=== PATIENT | female | born 1970 | race African-American/Black ===

== ENCOUNTER 2017-01-27 17:53 | Emergency (ER) | payer OTHER ==
[2017-01-27 18:18] VITALS: BP 159/98; PULSE 66; TEMP 98.2; BMI 29.9
[2017-01-27] MEDS ORDERED: IBUPROFEN 600 MG TABLET (FP) PO ONE (19:37)
[2017-01-27] MEDS: IBUPROFEN 600 MG TABLET (FP) PO ONE (19:38)
--- NOTE | 2017-01-27 19:48 | PDOC ---
History of Present Illness - General Chief Complaint: Injury Stated Complaint: INJURY/EMPLOYEE Time Seen by Provider: 01/27/17 19:08 History Source: Patient Exam Limitations: No Limitations - History of Present Illness Initial Comments: 01/27/17 19:38 46 yr female with c/o pain to left wrist after the bed frame fell on her left wrist at work. Pt has pain to the wrist. Past History - Past Medical History Allergies/Adverse Reactions: Allergies Allergy/AdvReac Type Severity Reaction Status Date / Time No Known Allergies Allergy Verified 01/27/17 18:15 Home Medications: Ambulatory Orders No Home Medications 0 dose .ROUTE UTDICT 12/05/12 Other medical history: DENIES. - Immunization History Td Vaccination: No TDAP Vaccination: No Immunization Up to Date: No - Psycho/Social/Smoking Cessation Hx Anxiety: No Suicidal Ideation: No Smoking Status: No Smoking History: Never smoked Number of Cigarettes Smoked Daily: 0 Hx Alcohol Use: No Drug/Substance Use Hx: No *Physical Exam - Vital Signs Last Vital Signs Temp Pulse Resp BP Pulse Ox 98.2 F 66 19 159/98 100 01/27/17 18:15 01/27/17 18:15 01/27/17 18:15 01/27/17 18:15 01/27/17 18:15 - Physical Exam General Appearance: Yes: Nourished, Appropriately Dressed HEENT: positive: EOMI, ILZ, Normal ENT Inspection, TMs Normal, Pharynx Normal Neck: positive: Supple Respiratory/Chest: positive: Lungs Clear, Normal Breath Sounds Cardiovascular: positive: Regular Rhythm, Regular Rate Gastrointestinal/Abdominal: positive: Normal Bowel Sounds, Soft Extremity: positive: Normal Capillary Refill, Normal Inspection, Normal Range of Motion, Tender (distal radius tenderness, no deformity ) Integumentary: positive: Normal Color, Dry, Warm Neurologic: positive: Fully Oriented, Alert, Normal Mood/Affect, Normal Response , Motor Strength 5/5 Procedures - Splinting Pre-Made Type: velcro ED Treatment Course - RADIOLOGY Radiology Studies Ordered: Category Date Time Status WRIST W/HAND-LEFT* [RAD] Stat Radiology 01/27/17 19:35 Ordered Medical Decision Making - Medical Decision Making 01/27/17 20:09 cc: left wrist injury at work today will get xray to r/o fracture motrin for pain *DC/Admit/Observation/Transfer Diagnosis at time of Disposition: Contusion of wrist Qualifiers: Encounter type: initial encounter Laterality: left Qualified Code(s): S60.212A - Contusion of left wrist, initial encounter - Discharge Dispostion Disposition: HOME Condition at time of disposition: Good - Referrals Referrals: Althea Knowles MD [Primary Care Provider] - New Ramos MD [Staff Physician] - - Patient Instructions Additional Instructions: keep the wrist in the splint at all times except to bathe and sleep take motrin as needed for pain follow with the orthopedist or for follow up next week - Post Discharge Activity Work/School Note: Back to Work
== END 2017-01-27 20:38 | disposition home or self-care (01) ==
LOC: JERFT 17:53
PROC: 2W3DX1Z Immobilization of Left Lower Arm using Splint (ICD-10-PCS; principal; 2017-01-27)
DX: S60.212A Contusion of left wrist, initial encounter (principal); W22.8XXA Striking against or struck by other objects, initial encounter; Y93.89 Activity, other specified; Y92.238 Other place in hospital as the place of occurrence of the external cause; Y99.0 Civilian activity done for income or pay
CPT/HCPCS: 73110-TC-LT; 73130-TC-LT; 99281-25

== ENCOUNTER 2017-11-10 19:50 | Emergency (ER) | payer OTHER ==
--- NOTE | 2017-11-10 20:10 | PDOC ---
Rapid Medical Evaluation Time Seen by Provider: 11/10/17 20:09 Medical Evaluation: Allergies Allergy/AdvReac Type Severity Reaction Status Date / Time No Known Allergies Allergy Verified 01/27/17 18:15 11/10/17 20:09 I have performed a brief in-person evaluation of this patient. The patient presents with a chief complaint of: MSK pain under shoulder blade after "trying to catch patient" Pertinent physical exam findings: well appearing, BP 190/100 I have ordered the following: urine preg The patient will proceed to the ED for further evaluation. Discharge Disposition - Diagnosis Muscle strain - Referrals - Patient Instructions - Post Discharge Activity
[2017-11-10 20:15] VITALS: PULSE 75; BMI 29.9
[2017-11-10] MEDS ORDERED: KETOROLAC TROMETHAMINE 30 MG/1 ML VIAL IM ONE (21:09)
--- NOTE | 2017-11-10 21:12 | PDOC ---
History of Present Illness - General Chief Complaint: Pain Stated Complaint: INJURY Time Seen by Provider: 11/10/17 20:09 History Source: Patient Exam Limitations: No Limitations - History of Present Illness Initial Comments: 11/10/17 21:09 This a 47-year-old female without significant past medical history was presents to the emergency department with right upper back pain status post striking ribs on door jamb. 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 She reports the pain is 8/10 and describes as a spasm. She denies fevers, chest pain, shortness of breath, dizziness. Past History - Past Medical History Allergies/Adverse Reactions: Allergies Allergy/AdvReac Type Severity Reaction Status Date / Time No Known Allergies Allergy Verified 11/10/17 20:12 Home Medications: Ambulatory Orders No Home Medications 0 dose .ROUTE UTDICT 12/05/12 COPD: No - Immunization History Td Vaccination: No TDAP Vaccination: No Immunization Up to Date: No - Suicide/Smoking/Psychosocial Hx Smoking Status: No Smoking History: Never smoked Have you smoked in the past 12 months: No Number of Cigarettes Smoked Daily: 0 Information on smoking cessation initiated: No Hx Alcohol Use: No Drug/Substance Use Hx: No Substance Use Type: None Review of Systems - Review of Systems Able to Perform ROS?: Yes Is the patient limited Khmer proficient: No Constitutional: No: Symptoms Reported HEENTM: No: Symptoms Reported Respiratory: No: Symptoms reported Cardiac (ROS): No: Symptoms Reported ABD/GI: No: Symptoms Reported : No: Symptoms Reported Musculoskeletal: Yes: See HPI Integumentary: No: Symptoms Reported Neurological: No: Symptoms reported Endocrine: No: Symptoms Reported Hematologic/Lymphatic: No: Symptoms Reported *Physical Exam - Vital Signs Last Vital Signs Temp Pulse Resp BP Pulse Ox 99.0 F 75 18 190/100 99 11/10/17 20:13 11/10/17 20:13 11/10/17 20:13 11/10/17 20:13 11/10/17 20:13 - Physical Exam General Appearance: Yes: Appropriately Dressed. No: Apparent Distress Respiratory/Chest: positive: Lungs Clear, Normal Breath Sounds. negative: Respiratory Distress, Accessory Muscle Use Cardiovascular: positive: Regular Rhythm, Regular Rate. negative: Murmur Musculoskeletal: positive: Normal Inspection, Other (TTP to right parascapular region. Skin intact.) Integumentary: positive: Normal Color, Dry, Warm Medical Decision Making - Medical Decision Making 11/10/17 21:12 A/P: 47-year-old female without medical history with right parascapular pain status post striking back on doorjamb Skin intact to affected area. Tender to palpation in right parascapular area. No crepitus or subcutaneous emphysema palpated. Vital signs notable for blood pressure of 190/100. I will give the patient Toradol 30 im now. Reassess 11/10/17 22:17 Pain 4/10 after Toradol. I will discharge patient home. *DC/Admit/Observation/Transfer Diagnosis at time of Disposition: Muscle contusion - Discharge Dispostion Disposition: HOME Condition at time of disposition: Stable Admit: No - Referrals - Patient Instructions Additional Instructions: Warm moist heat may help alleviate pain. After 24 hours, apply ice to affected area to help relieve pain. Take Motrin as directed by manufacturers instructions to help alleviate pain. See your doctor for reevaluation of your blood pressure. Return to emergency department for worsening pain, shortness of breath or any other concerns. Thank you very much for choosing us to provide your emergent healthcare needs. - Post Discharge Activity
[2017-11-10] MEDS ORDERED: KETOROLAC TROMETHAMINE 30 MG/1 ML VIAL ONE (21:13)
[2017-11-10 21:38] VITALS: TEMP 98.5
[2017-11-10 21:44] VITALS: BP 183/112
== END 2017-11-10 22:24 | disposition home or self-care (01) ==
LOC: JERFT 19:50
PROC: 3E0233Z Introduction of Anti-inflammatory into Muscle, Percutaneous Approach (ICD-10-PCS; principal; 2017-11-10)
DX: S40.011A Contusion of right shoulder, initial encounter (principal); X58.XXXA Exposure to other specified factors, initial encounter; Y93.F2 Activity, caregiving, lifting; Y92.238 Other place in hospital as the place of occurrence of the external cause; Y99.0 Civilian activity done for income or pay
CPT/HCPCS: 84703; 99281-25

== ENCOUNTER 2018-04-13 16:14 | Emergency (ER) | payer OTHER ==
[2018-04-13 16:19] VITALS: PULSE 89; TEMP 99.1; BMI 31.6
--- NOTE | 2018-04-13 16:34 | PDOC ---
Rapid Medical Evaluation Chief Complaint: Blood Pressure Problem Time Seen by Provider: 04/13/18 16:30 Medical Evaluation: Allergies Allergy/AdvReac Type Severity Reaction Status Date / Time No Known Allergies Allergy Verified 04/13/18 16:16 Vital Signs Temp Pulse Resp BP Pulse Ox 99.1 F 89 18 169/113 100 04/13/18 16:16 04/13/18 16:16 04/13/18 16:16 04/13/18 16:16 04/13/18 16:16 I have performed a brief in-person evaluation of this patient. The patient presents with a chief complaint of: headache and high BP. Patient received bad news that a family member today. She states since then she's been crying and has a headache. Checked BP at work and it was 200/100. She does not have a PCP and does not take BP medication. Pertinent physical exam findings: none I have ordered the following: ekg, labs The patient will proceed to the ED for further evaluation. Discharge Disposition - Diagnosis High blood pressure - Referrals - Patient Instructions - Post Discharge Activity
[2018-04-13 17:21] LABS: BASO % 0.7 % (0-2.0); EOS % 1.7 % (0-4.5); HEMATOCRIT 43.3 % (32.4-45.2); HEMOGLOBIN 14.6 GM/dL (10.7-15.3); LYMPH % 36.9 % (8-40); MCH 28.8 pg (25.7-33.7); MCHC 33.7 g/dl (32.0-36.0); MEAN CELL VOLUME 85.5 fl (80-96); MONO % 9.8 % (3.8-10.2); NEUT % 50.9 % (42.8-82.8); PLATELET COUNT 296 K/MM3 (134-434); RBC 5.07 M/mm3 (3.60-5.2); RDW 13.7 % (11.6-15.6); WHITE BLOOD COUNT 5.2 K/mm3 (4.0-10.0)
[2018-04-13 17:32] LABS: INR 1.1 (0.82-1.09); PROTHROMBIN TIME (PATIENT) 12.4 SEC (9.7-13.0)
[2018-04-13 17:52] LABS: ALBUMIN 3.8 g/dl (3.4-5.0); ANION GAP 8 (8-16); BILIRUBIN,TOTAL 0.2 mg/dL (0.2-1.0); BLOOD UREA NITROGEN 10 mg/dL (7-18); CALCIUM 8.9 mg/dL (8.5-10.1); CHLORIDE 107 mmol/L (98-107); CO2 26 mmol/L (21-32); CREATININE 0.8 mg/dL (0.55-1.02); GLUCOSE,RANDOM 89 mg/dL (74-106); POTASSIUM 3.5 mmol/L (3.5-5.1); SGOT/AST 16 U/L (15-37); SGPT/ALT 29 U/L (12-78); SODIUM 141 mmol/L (136-145); TOT PROT 8.2 g/dl (6.4-8.2)
[2018-04-13 17:54] LABS: ALK PHOS 89 U/L (45-117)
[2018-04-13] MEDS ORDERED: LABETALOL HCL 5 MG/1 ML (100MG/20 ML VIAL) IVPUSH ONE (17:59)
[2018-04-13 18:01] LABS: PLATELET ESTIMATE ADEQUATE
[2018-04-13] MEDS ORDERED: ACETAMINOPHEN 1000 MG/100 ML VIAL (NON FORMULARY) IVPB ONE (18:06)
[2018-04-13] MEDS ORDERED: METOCLOPRAMIDE HCL INJECTION 10 MG/2 ML VIAL IVPUSH ONE (18:06)
[2018-04-13] MEDS ORDERED: METOCLOPRAMIDE HCL INJECTION 10 MG/2 ML VIAL ONE (18:13)
[2018-04-13] MEDS ORDERED: ACETAMINOPHEN INJECTION 100 ML IVPB ONE (18:13)
[2018-04-13] MEDS ORDERED: KETOROLAC TROMETHAMINE 15 MG/ML VIAL IVPUSH ONE (18:44)
--- NOTE | 2018-04-13 18:57 | PDOC ---
History of Present Illness - General History Source: Patient Exam Limitations: No Limitations - History of Present Illness Initial Comments: 04/13/18 18:48 48f with pmh of untreated hypertension and tension headaches presents to the ED for 10 frontal headache since noon today. Family member today and she has been crying a lot. Generally avoid taking medication so never treated HTN or tension headaches. Checked her BP this afternoon, was 200 systolic. Feels "funny" Denies photophobia, auras or vision changes. <Matthew Gonzales - Last Filed: 04/13/18 19:07> <Velasquez Chaves - Last Filed: 04/13/18 19:37> - General Chief Complaint: Blood Pressure Problem Stated Complaint: BLOOD PRESSURE PROBLEM Time Seen by Provider: 04/13/18 16:30 Past History - Past Medical History COPD: No DVT: No Other medical history: uterine fibroids - Immunization History Td Vaccination: No TDAP Vaccination: No Immunization Up to Date: No - Suicide/Smoking/Psychosocial Hx Smoking Status: No Smoking History: Never smoked Have you smoked in the past 12 months: No Number of Cigarettes Smoked Daily: 0 Information on smoking cessation initiated: No Hx Alcohol Use: No Drug/Substance Use Hx: No Substance Use Type: None <Matthew Gonzales - Last Filed: 04/13/18 19:07> <Velasquez Chaves - Last Filed: 04/13/18 19:37> - Past Medical History Allergies/Adverse Reactions: Allergies Allergy/AdvReac Type Severity Reaction Status Date / Time No Known Allergies Allergy Verified 04/13/18 16:16 Home Medications: Ambulatory Orders No Home Medications 0 dose .ROUTE UTDICT 12/05/12 Review of Systems - Review of Systems Able to Perform ROS?: Yes Is the patient limited Danish proficient: No Constitutional: No: Symptoms Reported HEENTM: Yes: Tearing. No: Blurred Vision Respiratory: No: Symptoms reported Cardiac (ROS): No: Symptoms Reported ABD/GI: No: Symptoms Reported : No: Symptoms Reported Musculoskeletal: No: Symptoms Reported Neurological: Yes: Headache. No: Numbness, Paresthesia All Other Systems: Reviewed and Negative <Matthew Gonzales - Last Filed: 04/13/18 19:07> *Physical Exam - Vital Signs Last Vital Signs Temp Pulse Resp BP Pulse Ox 99.1 F 89 18 169/113 100 04/13/18 16:16 04/13/18 16:16 04/13/18 16:16 04/13/18 16:16 04/13/18 16:16 - Physical Exam General Appearance: Yes: Nourished, Appropriately Dressed, Moderate Distress HEENT: positive: EOMI, LIZ, Normal ENT Inspection. negative: Photophobia Respiratory/Chest: positive: Lungs Clear, Normal Breath Sounds. negative: Chest Tender, Respiratory Distress Cardiovascular: positive: Regular Rhythm, Regular Rate, S1, S2 Gastrointestinal/Abdominal: positive: Normal Bowel Sounds, Flat, Soft. negative : Tender Musculoskeletal: positive: Normal Inspection. negative: CVA Tenderness Extremity: positive: Normal Capillary Refill, Normal Inspection, Normal Range of Motion Integumentary: positive: Normal Color, Dry, Warm Neurologic: positive: Fully Oriented, Alert, Normal Mood/Affect, Normal Response , Motor Strength 5/5 <Matthew Gonzales - Last Filed: 04/13/18 19:07> - Vital Signs Last Vital Signs Temp Pulse Resp BP Pulse Ox 99.1 F 89 18 170/96 100 04/13/18 16:16 04/13/18 16:16 04/13/18 16:16 04/13/18 19:33 04/13/18 16:16 <Velasquez Chaves - Last Filed: 04/13/18 19:37> ED Treatment Course - LABORATORY CBC & Chemistry Diagram: 04/13/18 17:13 04/13/18 17:13 - ADDITIONAL ORDERS Additional order review: Laboratory Results 04/13/18 04/13/18 17:13 17:13 PT with INR 12.40 INR 1.10 Sodium 141 Potassium 3.5 Chloride 107 Carbon Dioxide 26 Anion Gap 8 BUN 10 Creatinine 0.8 Creat Clearance w eGFR > 60 Random Glucose 89 Calcium 8.9 Total Bilirubin 0.2 AST 16 ALT 29 Alkaline Phosphatase 89 Creatine Kinase 203 H Troponin I < 0.02 Total Protein 8.2 Albumin 3.8 04/13/18 17:13 RBC 5.07 MCV 85.5 MCHC 33.7 RDW 13.7 D MPV 8.0 Neutrophils % 50.9 Lymphocytes % 36.9 Monocytes % 9.8 Eosinophils % 1.7 Basophils % 0.7 - RADIOLOGY Radiology Studies Ordered: Category Date Time Status HEAD CT WITHOUT CONTRAST [CT] Stat CT Scan 04/13/18 18:02 Completed - Medications Given in the ED: ED Medications Discontinued Medications Generic Name Dose Route Start Last Admin Trade Name Freq PRN Reason Stop Dose Admin Acetaminophen 1,000 mg 04/13/18 18:06 04/13/18 18:31 Ofirmev Injection - IVPB 04/13/18 18:07 1,000 mg ONCE ONE Administration Labetalol HCl 10 mg 04/13/18 17:59 04/13/18 18:08 Normodyne Injection - IVPUSH 04/13/18 18:00 Not Given ONCE ONE Metoclopramide HCl 10 mg 04/13/18 18:06 04/13/18 18:31 Reglan Injection - IVPUSH 04/13/18 18:07 10 mg ONCE ONE Administration <Matthew Gonzales - Last Filed: 04/13/18 19:07> - LABORATORY CBC & Chemistry Diagram: 04/13/18 17:13 04/13/18 17:13 - ADDITIONAL ORDERS Additional order review: Laboratory Results 04/13/18 04/13/18 04/13/18 17:13 17:13 17:13 WBC 5.2 RBC 5.07 Hgb 14.6 Hct 43.3 MCV 85.5 MCH 28.8 MCHC 33.7 RDW 13.7 D Plt Count 296 MPV 8.0 Absolute Neuts (auto) 2.6 Neutrophils % 50.9 Lymphocytes % 36.9 Monocytes % 9.8 Eosinophils % 1.7 Basophils % 0.7 Nucleated RBC % 0 Platelet Estimate Adequate Platelet Comment Rare giant plts PT with INR 12.40 INR 1.10 Sodium 141 Potassium 3.5 Chloride 107 Carbon Dioxide 26 Anion Gap 8 BUN 10 Creatinine 0.8 Creat Clearance w eGFR > 60 Random Glucose 89 Calcium 8.9 Total Bilirubin 0.2 AST 16 ALT 29 Alkaline Phosphatase 89 Creatine Kinase 203 H Creatine Kinase Index 0.5 CK-MB (CK-2) 1.02 Troponin I < 0.02 Total Protein 8.2 Albumin 3.8 04/13/18 17:13 RBC 5.07 MCV 85.5 MCHC 33.7 RDW 13.7 D MPV 8.0 Neutrophils % 50.9 Lymphocytes % 36.9 Monocytes % 9.8 Eosinophils % 1.7 Basophils % 0.7 - Medications Given in the ED: ED Medications Discontinued Medications Generic Name Dose Route Start Last Admin Trade Name Freq PRN Reason Stop Dose Admin Acetaminophen 1,000 mg 04/13/18 18:06 04/13/18 18:31 Ofirmev Injection - IVPB 04/13/18 18:07 1,000 mg ONCE ONE Administration Ketorolac Tromethamine 15 mg 04/13/18 18:44 04/13/18 19:05 Toradol Injection - IVPUSH 04/13/18 18:45 15 mg ONCE ONE Administration Labetalol HCl 10 mg 04/13/18 17:59 04/13/18 18:08 Normodyne Injection - IVPUSH 04/13/18 18:00 Not Given ONCE ONE Metoclopramide HCl 10 mg 04/13/18 18:06 04/13/18 18:31 Reglan Injection - IVPUSH 04/13/18 18:07 10 mg ONCE ONE Administration <Velasquez Chaves - Last Filed: 04/13/18 19:37> Medical Decision Making - Medical Decision Making 04/13/18 19:08 CT head: No CT evidence of acute intracranial pathology. The intracranial structures demonstrate no definite interval change in comparison to a prior cranial CT study of 10/10/2009. On the current exam the partially imaged right sphenoid sinus demonstrates interval resolution of opacification since the 2010 CT study consistent with at least partial resolution of sinusitis. All labs WNL. Will treat pain with toradol, tylenol and reglan, EKG Will reassess after pain control. Patient has appointment tomorrow with PCP to get BP controlled. . <Matthew Gonzales - Last Filed: 04/13/18 19:07> *DC/Admit/Observation/Transfer - Discharge Dispostion Decision to Admit order: No <Matthew Gonzales - Last Filed: 04/13/18 19:07> <Velasquez Chaves - Last Filed: 04/13/18 19:37> Diagnosis at time of Disposition: High blood pressure - Referrals Referrals: Althea Knowles MD [Primary Care Provider] - New Valdez MD [Staff Physician] - - Patient Instructions Printed Discharge Instructions: DI for High Blood Pressure Additional Instructions: Follow up with your appointment with Dr. Knowles tomorrow morning. You need to have your blood pressure re-checked by your primary doctor, as it was elevated today. Uncontrolled blood pressure can eventually lead to kidney disease, heart disease, other serious illness, disability, or even . If you experience worsening headache, vomiting, fevers, or any other concerning symptoms, return to the ER immediately. Call the number provided to make an appointment with a neurologist for further evaluation of your headaches. - Post Discharge Activity
[2018-04-13] MEDS ORDERED: KETOROLAC TROMETHAMINE 15 MG/ML VIAL ONE (19:06)
--- NOTE | 2018-04-13 19:26 | PDOC ---
Attending Attestation - Resident Resident Name: JanetMatthew - ED Attending Attestation I have performed the following: I have examined & evaluated the patient, The case was reviewed & discussed with the resident, I agree w/resident's findings & plan, Exceptions are as noted - HPI HPI: 04/13/18 19:29 48 F with no known PMH presents to ED with headache x 1 day. Pt reports history of tension headaches and states that this headache began the same way it always does. She reports tightness behind the head that progresses to global headache. Denies N/V. Denies F/C. Denies neck stiffness. Pt reports in family today and states that she has been crying, which likely set off the headache. Pt denies thunderclap, denies worst headache of life. Notably, pt's BP was elevated in triage. Pt reports that her BP has been running high recently. She has appt to see her PMD tomorrow. Pt denies CP/SOB. Denies leg swelling. - Physicial Exam PE: 04/13/18 19:32 "GENERAL: Awake, alert, and fully oriented, in no acute distress. HEAD: No signs of trauma EYES: PERRLA, EOMI, sclera anicteric, conjunctiva clear ENT: Auricles normal inspection, hearing grossly normal, nares patent, oropharynx clear without exudates. Moist mucosa NECK: Nontender, no stepoffs, Normal ROM, supple, no lymphadenopathy, JVD, or masses LUNGS: Breath sounds equal, clear to auscultation bilaterally. No wheezes, and no crackles HEART: Regular rate and rhythm, normal S1 and S2, no murmurs, rubs or gallops ABDOMEN: Soft, nontender, normoactive bowel sounds. No guarding, no rebound. No masses EXTREMITIES: Normal range of motion, no edema. No clubbing or cyanosis. No cords, erythema, or tenderness NEUROLOGICAL: Cranial nerves II through XII intact. 5/5 strength and sensation in all extremities, Normal speech, normal gait, normal cerebellar function SKIN: Warm, Dry, normal turgor, no rashes or lesions noted. " - Medical Decision Making 04/13/18 19:32 48 F with headache. Typical of her usual tension headaches. No red flags for SAH /meningitis or other acute intracranial process. Nonfocal neuro exam. However, pt with elevated BP, so will obtain head CT to r/o ICH. - Labs - CT head - gopal Pendleton 04/13/18 19:[address] head negative Pt reports resolution of KWOK s/p meds. Pt is well appearing, with normal vitals. Clinically stable for DC at this time. I discussed the physical exam findings, ancillary test results and final diagnoses with the patient. I answered all of the patient's questions. The patient was satisfied with the care received and felt comfortable with the discharge plan and treatment plan. The patient agrees to follow up with the primary care physician within 24-72 hours.
[2018-04-13 19:33] VITALS: BP 170/96
--- NOTE | 2018-04-14 14:22 | EKG ---
Test Reason : Blood Pressure : / mmHG Vent. Rate : 070 BPM Atrial Rate : 070 BPM P-R Int : 152 ms QRS Dur : 092 ms QT Int : 428 ms P-R-T Axes : 023 014 040 degrees QTc Int : 462 ms NORMAL SINUS RHYTHM POSSIBLE LEFT ATRIAL ENLARGEMENT BORDERLINE ECG WHEN COMPARED WITH ECG OF 20-JUN-2007 10:19, T WAVE INVERSION NOW EVIDENT IN ANTERIOR LEADS Confirmed by RADHA ESTRADA, CLARA ([id number]) on 04/14/2018 2:22:04 PM Referred By: Confirmed By:CLARA GARCIA MD
== END 2018-04-13 19:41 | disposition home or self-care (01) ==
LOC: JER 16:14
PROC: 3E033NZ Introduction of Analgesics, Hypnotics, Sedatives into Peripheral Vein, Percutaneous Approach (ICD-10-PCS; principal; 2018-04-13)
PROC: 3E0333Z Introduction of Anti-inflammatory into Peripheral Vein, Percutaneous Approach (ICD-10-PCS; 2018-04-13)
PROC: 3E033GC Introduction of Other Therapeutic Substance into Peripheral Vein, Percutaneous Approach (ICD-10-PCS; 2018-04-13)
PROC: 3E033GC Introduction of Other Therapeutic Substance into Peripheral Vein, Percutaneous Approach (ICD-10-PCS; 2018-04-13)
DX: I10 Essential (primary) hypertension (principal); G44.209 Tension-type headache, unspecified, not intractable; Z63.4 Disappearance and death of family member
CPT/HCPCS: 36415; 70450-TC; 80053; 82550; 82553; 84484; 85025; 85610; 93005; 93010; 99284-25; J0131

== ENCOUNTER 2021-01-29 22:16 | Emergency (ER) | payer OTHER ==
[~2021-01-29 22:16] MED LIST: LIDOCAINE PATCH REMOVAL MC SCH
[2021-01-29 22:31] VITALS: BP 164/96; PULSE 80; TEMP 98.5; BMI 32.4
[2021-01-29] MEDS ORDERED: LIDOCAINE 5% TOPICAL PATCH TP ONE (22:53)
[2021-01-29] MEDS ORDERED: ACETAMINOPHEN 500 MG TABLET (FP) PO ONE (22:53)
[2021-01-29] MEDS ORDERED: LIDOCAINE 5% TOPICAL PATCH ONE (23:04)
[2021-01-29] MEDS ORDERED: ACETAMINOPHEN 325 MG TABLET (FP) ONE (23:04)
[2021-01-29] MEDS ORDERED: KETOROLAC TROMETHAMINE 30 MG/1 ML VIAL IM ONE (23:50)
[2021-01-30] MEDS ORDERED: KETOROLAC TROMETHAMINE 30 MG/1 ML VIAL ONE (00:21)
== END 2021-01-30 00:45 | disposition home or self-care (01) ==
LOC: JER 22:16
PROC: 3E0233Z Introduction of Anti-inflammatory into Muscle, Percutaneous Approach (ICD-10-PCS; principal; 2021-01-29)
DX: M25.511 Pain in right shoulder (principal); S63.610A Unspecified sprain of right index finger, initial encounter
CPT/HCPCS: 73030-TC-RT-FY; 73110-TC-RT-FY; 73130-TC-RT-FY; 99284-25

== ENCOUNTER 2021-03-27 17:10 | Emergency (ER) | payer OTHER ==
[2021-03-27 17:24] VITALS: BP 139/75; PULSE 79; BMI 31.6
== END 2021-03-27 18:46 | disposition home or self-care (01) ==
LOC: JER 17:10 → JERFT 17:10
DX: M71.22 Synovial cyst of popliteal space [Baker], left knee (principal)
CPT/HCPCS: 93971-TC; 99284-25

== ENCOUNTER 2021-10-31 16:36 | Emergency (ER) | payer OTHER ==
[2021-10-31 16:49] VITALS: BP 146/73; PULSE 88; TEMP 98; BMI 35.2
[2021-10-31] MEDS ORDERED: LIDOCAINE 5% TOPICAL PATCH TP ONE (17:49)
[2021-10-31] MEDS ORDERED: KETOROLAC TROMETHAMINE 60 MG/2 ML VIAL IM ONE (17:49)
[2021-10-31] MEDS ORDERED: LIDOCAINE 5% TOPICAL PATCH ONE (17:52)
[2021-10-31] MEDS ORDERED: KETOROLAC TROMETHAMINE 30 MG/1 ML VIAL ONE (17:53)
== END 2021-10-31 18:10 | disposition home or self-care (01) ==
LOC: JERFT 16:36 → JER 16:36 → JERFT 18:10
PROC: 3E0233Z Introduction of Anti-inflammatory into Muscle, Percutaneous Approach (ICD-10-PCS; principal; 2021-10-31)
DX: S43.402A Unspecified sprain of left shoulder joint, initial encounter (principal); W19.XXXA Unspecified fall, initial encounter; Y92.9 Unspecified place or not applicable
CPT/HCPCS: 73030-TC-LT-FY; 99284-25

== ENCOUNTER 2022-02-05 13:37 | Emergency (ER) | payer OTHER ==
[2022-02-05 14:05] VITALS: BP 153/78; PULSE 84; TEMP 98.6; BMI 29.9
[2022-02-05] MEDS ORDERED: TETRACAINE 0.5% HCL 0.6ML DROPPER.BOTTLE OU ONE (14:28)
[2022-02-05] MEDS ORDERED: FLUORESCEIN NA 1 EA STRIP OU ONE (14:28)
== END 2022-02-05 15:23 | disposition home or self-care (01) ==
LOC: JERFT 13:37
DX: H11.31 Conjunctival hemorrhage, right eye (principal)
CPT/HCPCS: 87633; 99283-25

== ENCOUNTER 2022-02-19 13:34 | Emergency (ER) | payer OTHER ==
[2022-02-19 13:50] VITALS: BP 151/88; PULSE 89; TEMP 98.5; BMI 31.6
[2022-02-19] MEDS ORDERED: LIDOCAINE 5% TOPICAL PATCH TP ONE (15:09)
[2022-02-19] MEDS ORDERED: KETOROLAC TROMETHAMINE 30 MG/1 ML VIAL IM ONE (15:09)
[2022-02-19] MEDS ORDERED: KETOROLAC TROMETHAMINE 30 MG/1 ML VIAL ONE (15:12)
[2022-02-19] MEDS ORDERED: LIDOCAINE 5% TOPICAL PATCH ONE (15:12)
[2022-02-19] MEDS ORDERED: LIDOCAINE PATCH REMOVAL MC SCH (22:00)
== END 2022-02-19 15:40 | disposition home or self-care (01) ==
LOC: JERFT 13:34
PROC: 3E0233Z Introduction of Anti-inflammatory into Muscle, Percutaneous Approach (ICD-10-PCS; principal; 2022-02-19)
DX: M54.6 Pain in thoracic spine (principal); R07.9 Chest pain, unspecified; V49.40XA Driver injured in collision with unspecified motor vehicles in traffic accident, initial encounter
CPT/HCPCS: 71046-TC-FY; 99284-25

== ENCOUNTER 2023-04-05 20:32 | Emergency (ER) | payer OTHER ==
[2023-04-05 20:41] VITALS: BP 178/94; PULSE 86; RESP 18; TEMP 98.5; BMI 31.6
[2023-04-05] MEDS ORDERED: DEXAMETHASONE SOD PHOSPHATE 10 MG/1 ML VIAL IM ONE (21:26)
[2023-04-05] MEDS ORDERED: KETOROLAC TROMETHAMINE 30 MG/1 ML VIAL IM ONE (21:26)
[2023-04-05] MEDS ORDERED: CYCLOBENZAPRINE HCL 5 MG TABLET PO STA (21:26)
[2023-04-05] MEDS ORDERED: ACETAMINOPHEN 325 MG TABLET (FP) PO ONE (21:26)
[2023-04-05] MEDS ORDERED: DEXAMETHASONE SOD PHOSPHATE 10 MG/1 ML VIAL ONE (21:31)
[2023-04-05] MEDS ORDERED: KETOROLAC TROMETHAMINE 30 MG/1 ML VIAL ONE (21:31)
[2023-04-05] MEDS ORDERED: CYCLOBENZAPRINE HCL 10 MG TABLET (FP) ONE ×2 (21:31→21:36)
[2023-04-05] MEDS ORDERED: ACETAMINOPHEN 325 MG TABLET (FP) ONE (21:31)
== END 2023-04-05 22:09 | disposition home or self-care (01) ==
LOC: JERFT 20:32
PROC: 3E023GC Introduction of Other Therapeutic Substance into Muscle, Percutaneous Approach (ICD-10-PCS; principal; 2023-04-05)
PROC: 3E0233Z Introduction of Anti-inflammatory into Muscle, Percutaneous Approach (ICD-10-PCS; 2023-04-05)
DX: S29.001A Unspecified injury of muscle and tendon of front wall of thorax, initial encounter (principal); M79.10 Myalgia, unspecified site; X58.XXXA Exposure to other specified factors, initial encounter; Y93.9 Activity, unspecified; Y92.9 Unspecified place or not applicable
CPT/HCPCS: 99284-25; J1100

== ENCOUNTER 2023-07-29 16:49 | Emergency (ER) | payer OTHER ==
[2023-07-29 16:54] VITALS: TEMP 98; BMI 33.4
[2023-07-29 17:22] LABS: EPI CELLS 14 /uL (0-25.1); HYALINE CASTS 1 /uL (0-3.1); URINE APPEARANCE CLEAR; URINE BACTERIA 541 /uL (0-1359); URINE BILIRUBIN NEGATIVE (NEGATIVE); URINE COLOR YELLOW; URINE GLUCOSE (UA) NEGATIVE (NEGATIVE); URINE KETONE NEGATIVE (NEGATIVE); URINE LEUK ESTERASE NEGATIVE (NEGATIVE); URINE NITRITE NEGATIVE (NEGATIVE); URINE PROTEIN NEGATIVE (NEGATIVE); URINE RBC 34 /uL (0-23.9); URINE UROBILINOGEN 0.2 mg/dL (0.2-1.0); URINE WBC 27 /uL (0-25.8)
[2023-07-29] MEDS ORDERED: ACETAMINOPHEN 1000 MG/100 ML BAG IVPB ONE (17:25)
[2023-07-29] MEDS ORDERED: ACETAMINOPHEN INJECTION 100 ML IVPB ONE (17:29)
[2023-07-29] MEDS ORDERED: LACTATED RINGERS SOLUTION 1000 ML INFUS.BAG IV ONE (17:34)
[2023-07-29] MEDS ORDERED: ONDANSETRON 4 MG/2 ML VIAL IVPUSH ONE (17:42)
[2023-07-29] MEDS ORDERED: ONDANSETRON 4 MG/2 ML VIAL ONE (17:46)
[2023-07-29 17:58] LABS: BASO % 0.6 % (0-2.0); EOS % 1.5 % (0-4.5); HEMATOCRIT 42.1 % (32.4-45.2); LYMPH % 41.7 % (8-40); MCH 28.5 pg (25.7-33.7); MCHC 33.1 g/dl (32.0-36.0); MEAN CELL VOLUME 86.1 fl (80-96); MEAN PLT VOLUME 7.7 fl (7.5-11.1); MONO % 10.5 % (3.8-10.2); NEUT % 45.7 % (42.8-82.8); PLATELET COUNT 328 10^3/uL (134-434); RDW 14.8 % (11.6-15.6); WHITE BLOOD COUNT 4.5 K/mm3 (4.0-10.0)
[2023-07-29] MEDS ORDERED: CEFTRIAXONE 1 GM in DEXTROSE 5%-WATER - 100 ML IVPB ONE (18:11)
[2023-07-29 18:17] LABS: POTASSIUM 3.3 mmol/L (3.5-5.1)
[2023-07-29 18:19] LABS: ALBUMIN 3.7 g/dl (3.4-5.0)
[2023-07-29 18:20] LABS: BLOOD UREA NITROGEN 9.3 mg/dL (7-18)
[2023-07-29 18:23] VITALS: BP 140/75; PULSE 71; RESP 16
[2023-07-29 18:23] LABS: CREATININE 0.7 mg/dL (0.55-1.3)
[2023-07-29 18:25] LABS: BILIRUBIN,TOTAL 0.2 mg/dL (0.2-1)
[2023-07-29] MEDS ORDERED: CEFTRIAXONE 1 GM/50 ML BAG ONE ×2 (19:05→19:07)
[2023-07-29] MEDS ORDERED: POTASSIUM CHLORIDE ORAL LIQUID 20 MEQ/15 ML PO ONE (19:16)
[2023-07-29] MEDS ORDERED: POTASSIUM CHLORIDE ORAL LIQUID 20 MEQ/15 ML ONE (19:47)
== END 2023-07-29 20:54 | disposition home or self-care (01) ==
LOC: JER 16:49
PROC: 3E03329 Introduction of Other Anti-infective into Peripheral Vein, Percutaneous Approach (ICD-10-PCS; principal; 2023-07-29)
PROC: 3E033NZ Introduction of Analgesics, Hypnotics, Sedatives into Peripheral Vein, Percutaneous Approach (ICD-10-PCS; 2023-07-29)
PROC: 3E033GC Introduction of Other Therapeutic Substance into Peripheral Vein, Percutaneous Approach (ICD-10-PCS; 2023-07-29)
DX: R10.9 Unspecified abdominal pain (principal); R35.0 Frequency of micturition; R31.9 Hematuria, unspecified; R11.0 Nausea; N20.0 Calculus of kidney; N39.0 Urinary tract infection, site not specified
CPT/HCPCS: 36415; 74176-TC; 80053; 81003; 83690; 85025; 87086; 93005; 93010

== ENCOUNTER 2024-02-09 13:48 | Emergency (ER) | payer OTHER ==
[2024-02-09 13:57] VITALS: BP 139/76; PULSE 83; RESP 17; TEMP 98.7; BMI 31.6
[2024-02-09] MEDS ORDERED: KETOROLAC TROMETHAMINE 30 MG/1 ML VIAL ONE (14:20)
[2024-02-09] MEDS ORDERED: LIDOCAINE 4% PATCH TP ONE (14:20)
[2024-02-09] MEDS: LIDOCAINE 4% PATCH TP ONE (14:24)
[2024-02-09] MEDS: KETOROLAC TROMETHAMINE 30 MG/1 ML VIAL IM ONE (14:24)
== END 2024-02-09 15:26 | disposition home or self-care (01) ==
LOC: JERFT 13:48
PROC: 3E0233Z Introduction of Anti-inflammatory into Muscle, Percutaneous Approach (ICD-10-PCS; principal; 2024-02-09)
DX: G89.29 Other chronic pain (principal); M25.552 Pain in left hip
CPT/HCPCS: 73502-TC-LT-FY; 99284-25

== ENCOUNTER 2024-07-01 16:10 | Emergency (ER) | payer OTHER ==
[2024-07-01 16:20] VITALS: BP 153/90; PULSE 89; RESP 18; TEMP 98.6; BMI 31.6
[2024-07-01] MEDS ORDERED: LIDOCAINE 4% PATCH TP ONE (16:54)
[2024-07-01] MEDS ORDERED: KETOROLAC TROMETHAMINE 15 MG/ML VIAL ONE ×2 (16:56→17:08)
[2024-07-01] MEDS ORDERED: ACETAMINOPHEN 500 MG TABLET (FP) ONE (16:56)
[2024-07-01] MEDS: ACETAMINOPHEN 500 MG TABLET (FP) PO ONE (17:00)
[2024-07-01] MEDS: LIDOCAINE 4% PATCH TP ONE (17:00)
[2024-07-01] MEDS: KETOROLAC TROMETHAMINE 30 MG/1 ML VIAL IM ONE (17:09)
[2024-07-01] MEDS ORDERED: LIDOCAINE PATCH REMOVAL MC SCH (22:00)
== END 2024-07-01 18:25 | disposition home or self-care (01) ==
LOC: JERFT 16:10
PROC: 3E0133Z Introduction of Anti-inflammatory into Subcutaneous Tissue, Percutaneous Approach (ICD-10-PCS; principal; 2024-07-01)
DX: S20.211A Contusion of right front wall of thorax, initial encounter (principal); M54.2 Cervicalgia; V49.40XA Driver injured in collision with unspecified motor vehicles in traffic accident, initial encounter
CPT/HCPCS: 71046-TC-FY; 71101-TC-RT-FY; 93005; 93010; 99284-25

== ENCOUNTER 2025-04-27 17:23 | Emergency (ER) | payer OTHER ==
[2025-04-27 17:27] VITALS: TEMP 98.6; BMI 31.6
[2025-04-27] MEDS ORDERED: KETOROLAC TROMETHAMINE 15 MG/ML VIAL ONE (18:19)
[2025-04-27 18:20] LABS: ABSOLUTE IMMATURE GRANULOCYTES 0.03 x10^3/uL (0.0-0.031); BASOPHILS # 0.03 x10^3/uL (0.01-0.08); EOSINOPHIL % 1.0 % (0.7-5.8); EOSINOPHILS # 0.06 x10^3/uL (0.04-0.36); MCHC 32.3 g/dl (32.2-35.5); MEAN CELL VOLUME 85.3 fl (79.4-94.8); MEAN PLT VOLUME 9.8 fl (9.4-12.3); MONOCYTE # 0.34 x10^3/uL (0.24-0.86); MONOCYTE % 5.9 % (4.7-12.5); RDW 13.6 % (12.3-16.6)
[2025-04-27] MEDS: KETOROLAC TROMETHAMINE 15 MG/ML VIAL IVPUSH ONE (18:22)
[2025-04-27 18:27] LABS: INR 1.17 (0.83-1.09); PROTHROMBIN TIME (PATIENT) 12.7 SEC (9.7-13.0)
[2025-04-27] MEDS: FAMOTIDINE 20 MG/50 ML IVPB 20 MG/50 ML MG IVPB ONE (18:54)
[2025-04-27] MEDS ORDERED: FAMOTIDINE 20 MG/50 ML IVPB 20 MG/50 ML MG IVPB ONE (18:54)
[2025-04-27] MEDS: MAG HYDROX/AL HYDROX/SIMETH 30 ML UNIT-DOSE CUP PO ONE (18:54)
[2025-04-27] MEDS ORDERED: MAG HYDROX/AL HYDROX/SIMETH 30 ML UNIT-DOSE CUP ONE (18:55)
[2025-04-27 19:55] LABS: CO2 28.0 mmol/L (21-32); GLUCOSE,RANDOM 159.0 mg/dL (74-106)
[2025-04-27 19:58] LABS: CREATININE 1.1 mg/dL (0.55-1.3); SGPT/ALT 40.0 U/L (13-61)
[2025-04-27 20:00] LABS: TOT PROT 7.8 g/dl (6.4-8.2)
[2025-04-27 20:01] LABS: ALK PHOS 102.0 U/L (45-117)
[2025-04-27 20:11] LABS: SGOT/AST 23.0 U/L (15-37)
[2025-04-27 22:33] VITALS: BP 137/73; PULSE 71; RESP 17
[2025-04-28 00:47] LABS: HCV DIAGNOSTIC IN-HOUSE W/RFLX NON-REACTIVE (NONREACTIVE)
[2025-04-28 00:51] LABS: HIV INTERPRETATION NEGATIVE (NEGATIVE)
== END 2025-04-27 21:15 | disposition home or self-care (01) ==
LOC: JER 17:23
PROC: 3E033GC Introduction of Other Therapeutic Substance into Peripheral Vein, Percutaneous Approach (ICD-10-PCS; principal; 2025-04-27)
PROC: 3E0333Z Introduction of Anti-inflammatory into Peripheral Vein, Percutaneous Approach (ICD-10-PCS; 2025-04-27)
DX: R07.89 Other chest pain (principal)
CPT/HCPCS: 36415; 71046-TC-FY; 80053; 83690; 84484; 85025; 85610; 86803; 87389; 93005; 93010; 99285-25

== ENCOUNTER 2025-05-11 13:51 | Emergency (ER) | payer OTHER ==
[2025-05-11 14:05] VITALS: BMI 31.6
[2025-05-11] MEDS ORDERED: ACETAMINOPHEN 500 MG TABLET (FP) ONE (15:25)
[2025-05-11] MEDS: ACETAMINOPHEN 500 MG TABLET (FP) PO ONE (15:27)
[2025-05-11 15:39] LABS: EPI CELLS 6 /uL (0-25.1); HYALINE CASTS 0 /uL (0-3.1); URINE APPEARANCE CLEAR; URINE BACTERIA 297 /uL (0-1359); URINE BILIRUBIN NEGATIVE (NEGATIVE); URINE COLOR ORANGE; URINE GLUCOSE (UA) NEGATIVE (NEGATIVE); URINE KETONE NEGATIVE (NEGATIVE); URINE LEUK ESTERASE NEGATIVE (NEGATIVE); URINE NITRITE NEGATIVE (NEGATIVE); URINE PROTEIN TRACE (NEGATIVE); URINE RBC 1738 /uL (0-23.9); URINE UROBILINOGEN 0.2 mg/dL (0.2-1.0); URINE WBC 7 /uL (0-25.8)
[2025-05-11 18:00] VITALS: BP 125/71; PULSE 68; RESP 15; TEMP 97.7
[2025-05-11] MEDS ORDERED: IBUPROFEN 600 MG TABLET (FP) PO ONE (19:48)
[2025-05-11] MEDS: IBUPROFEN 600 MG TABLET (FP) PO ONE (19:50)
== END 2025-05-11 19:51 | disposition home or self-care (01) ==
LOC: JER 13:51
DX: N13.2 Hydronephrosis with renal and ureteral calculous obstruction (principal); R11.0 Nausea; R31.9 Hematuria, unspecified; R10.30 Lower abdominal pain, unspecified; M54.50 Low back pain, unspecified
CPT/HCPCS: 74176-TC; 76830-TC; 81003; 87086; 99284-25

== ENCOUNTER → 2025-05-16 | Day surgery (SDC) | payer OTHER ==
[2025-05-15 09:29] VITALS: BMI 33.3
[~2025-05-16] MED LIST changes: +DEXAMETHASONE SOD PHOSPHATE 4 MG/1 ML VIAL ONE; +DEXTROSE 5%-0.45% SALINE 1,000 ML IV SCH; +LACTATED RINGERS SOLUTION 1,000 ML IV SCH; +LIDOCAINE HCL/PF 2% SDV 5ML VIAL ONE; -LIDOCAINE PATCH REMOVAL MC SCH; +MIDAZOLAM HCL 2 MG/2 ML SINGLE DOSE VIAL ONE; +ONDANSETRON 4 MG/2 ML VIAL IVPUSH PRN; +ONDANSETRON 4 MG/2 ML VIAL ONE; +PROPOFOL 20 ML ONE
[2025-05-16 12:00] VITALS: PULSE 68
[2025-05-16 12:45] VITALS: TEMP 97.4
[2025-05-16 13:21] VITALS: BP 130/70; RESP 18
== END | disposition home or self-care (01) ==
LOC: JASU-SURG 06:13
PROVIDERS: ATTEND Urology
PROC: 0TF68ZZ Fragmentation in Right Ureter, Via Natural or Artificial Opening Endoscopic (ICD-10-PCS; principal; 2025-05-16 09:30)
PROC: 0T768DZ Dilation of Right Ureter with Intraluminal Device, Via Natural or Artificial Opening Endoscopic (ICD-10-PCS; 2025-05-16 09:30)
DX: N20.1 Calculus of ureter (principal)
CPT/HCPCS: 36415; 76000-TC-FY; 82360; 88300-TC; 94760; C1758